=== PATIENT | male | born 1965 | race Caucasian/White ===

== ENCOUNTER 2018-05-18 11:49 | Emergency (ER) | payer MEDICAID ==
[~2018-05-18] VITALS: Ht 170.2 cm; Wt 75.0 kg
[2018-05-18 11:54] VITALS: Ht 170.2 cm; Wt 75.0 kg
[2018-05-18] MEDS ORDERED: DEXTROSE 50% 50 ML SYRINGE IV STA (12:03)
[2018-05-18] MEDS ORDERED: INSULIN (12:11)
--- NOTE | 2018-05-18 12:22 | ERD ---
ER Documentation Chief Complaint Chief Complaint hypoglycemia glucose 48 in intake HPI This is a 52-year-old man with a history of diabetes mellitus recently started on insulin therapy took his insulin this morning but only ate a small piece of toast and coffee for breakfast brought in by a friend for confusion and decreased mental status. He had no loss of consciousness, no seizure activity, no vomiting or diarrhea. Patient denies chest pain or shortness of breath. He has a remote history of alcoholism and possible cirrhosis and admits to having a long history of kidney disease not requiring hemodialysis and hypertension. Patient also has a history of diabetes mellitus but states he only recently began using insulin therapy. He denies blood per rectum or melena, no fevers or chills, no dysuria, no headache or blurry vision. ROS All systems reviewed and are negative except as per history of present illness. Medications Home Meds Reported Medications [Unkown Insulin] No Conflict Check 05/18/18 Allergies Allergies: Coded Allergies: No Known Allergy (Unverified , 05/18/18) PMhx/Soc Remote alcoholism, cirrhosis, diabetes mellitus, hypertension, chronic kidney disease not requiring hemodialysis FmHx Family History: diabetes Physical Exam Vitals Vital Signs Date Temp Pulse Resp B/P (MAP) Pulse Ox O2 O2 Flow FiO2 Time Delivery Rate 05/18/18 65 18 148/91 99 Room Air 13:36 (110) 05/18/18 76 18 118/80 98 Room Air 12:10 (93) 05/18/18 98.0 72 18 161/60 96 11:54 (93) Physical Exam GENERAL: Well-developed, well-nourished, appears confused, afebrile HEENT: Moist mucous membranes, pink conjunctiva, no cervical spine tenderness or step-off deformities, no goiter, no jaundice or icterus, extraocular movements intact without pain. NEURO: Alert and oriented 1, no focal deficits or facial asymmetry, able to answer questions and follow commands, pupils equal round reactive to light CARDIAC: Regular rate and rhythm, no murmurs rubs or gallops LUNGS: Clear bilaterally no wheezing crackles or stridor ABDOMEN: Soft nontender, no guarding, no rigidity, no rebound, no psoas sign no obturator sign. SKIN: Warm and dry to touch, no abrasions, contusions, or hematomas, no lacerations, no ecchymosis, no target lesions, and without ulcers EXTREMITIES: No clubbing cyanosis, 3+ pitting edema in the lower extremities bilaterally, calves are bilaterally symmetrical, no Homans sign, no popliteal cord sign. Distal pulses equal and bilateral PSYCH: Normal affect without agitation or irritability Result Diagram: 05/18/18 1205 05/18/18 1205 Results 24 hrs Laboratory Tests Test 05/18/18 11:53 05/18/18 12:01 05/18/18 12:04 05/18/18 12:05 Bedside Glucose 48 mg/dL 475 mg/dL 260 mg/dL 283 mg/dL White Blood Count 9.0 10^3/ul Red Blood Count 3.91 10^6/ul Hemoglobin 11.1 g/dl Hematocrit 33.4 % Mean Corpuscular 85.4 fl Volume Mean Corpuscular 28.4 pg Hemoglobin Mean Corpuscular 33.2 g/dl Hemoglobin Concent Red Cell 13.7 % Distribution Width Platelet Count 269 10^3/UL Mean Platelet 8.8 fl Volume Immature 0.300 % Granulocytes % Neutrophils % 67.1 % Lymphocytes % 23.8 % Monocytes % 7.3 % Eosinophils % 1.1 % Basophils % 0.4 % Nucleated Red Blood 0.0 /100WBC Cells % Immature 0.030 10^3/ul Granulocytes # Neutrophils # 6.0 10^3/ul Lymphocytes # 2.1 10^3/ul Monocytes # 0.7 10^3/ul Eosinophils # 0.1 10^3/ul Basophils # 0.0 10^3/ul Nucleated Red Blood 0.0 10^3/ul Cells # Sodium Level 134 mmol/L Potassium Level 4.2 mmol/L Chloride Level 106 mmol/L Carbon Dioxide 24 mmol/L Level Anion Gap 4 Blood Urea Nitrogen 35 mg/dl Creatinine 3.16 mg/dl Est Glomerular 21 mL/min Filtrat Rate mL/min Glucose Level 41 mg/dl Calcium Level 8.2 mg/dl Total Bilirubin 0.0 mg/dl Direct Bilirubin 0.00 mg/dl Indirect Bilirubin 0.0 mg/dl Aspartate Amino 83 IU/L Transf (AST/SGOT) Alanine 59 IU/L Aminotransferase (A LT/SGPT) Alkaline 175 IU/L Phosphatase Troponin I < 0.012 ng/ml Total Protein 6.6 g/dl Albumin 2.6 g/dl Globulin 4.00 g/dl Albumin/Globulin 0.65 Ratio Lipase 65 U/L Test 05/18/18 13:26 Bedside Glucose 67 mg/dL Current Medications Medications Dose Sig/Juan Ramon Start Time Status Last (Trade) Ordered Route PRN Stop Time Admin Dose Reason Admin Dextrose 50 ml ONCE STAT 05/18/18 DC 05/18/18 (D50w IV 12:03 12:07 Syringe) 05/18/18 12:06 Procedures/MDM IV line was established patient was placed on engine monitor rhythm strip revealed a sinus rhythm at about 80 bpm with upright P and T waves. Patient was afebrile Patient did appeared confused in the ER blood sugar was checked and was low, so I administered dextrose 25 g IV x1 with immediate improvement in mental status. At this time he is alert and oriented x3 and able to answer all questions and follow commands. He states he has had symptomatic hypoglycemia in the past. EKG performed, read by me revealed a normal sinus rhythm at 67 bpm, right axis, narrow QRS complex, no concerning ST elevations or depressions noted One AP view of the chest performed, read by me reveals no acute infiltrates, normal mediastinum, sharp costophrenic and cardiac borders, no air under the diaphragm. Otherwise unremarkable chest x-ray. CT scan of the abdomen and pelvis was performed,IMPRESSION: 1. Moderate all 4 quadrant abdominal ascites. No abscess or free air. 2. Cirrhosis. No focal hepatic lesions. 3. Multiple small nonobstructing left renal calcified calculi. No right urinary calcified calculi. No obstructive uropathy bilaterally. 4. Mild anasarca. 5. Chronic basilar interstitial lung disease and cylindrical bronchiectasis. Patient ate a full meal here and his blood sugar and mental status remained normal CBC was unremarkable, electrolytes revealed kidney disease with a creatinine of 3.2, bicarb was normal, liver function tests normal, troponin negative Patient's vital signs are normal and his mental status is at baseline, he ate a meal here and is asymptomatic. I recommend that he follow-up with his PMD for repeat imaging of the chest given today's x-ray findings read by radiology. He has no signs or symptoms of decompensated heart failure or any other active cardiopulmonary issues. Differential diagnoses considered, included but not limited to acute coronary syndrome, pulmonary embolism, aortic dissection, abdominal aortic aneurysm, sepsis, stroke, meningitis, encephalitis, pneumonia, appendicitis, cholecystitis, bowel obstruction, pyelonephritis, nephrolithiasis, cystitis, as well as metabolic, hematologic, and electrolyte abnormalities. As well as abscess, cellulitis, fractures, and dislocations. Patient feels much better at this time, and vital signs are normal, symptoms have improved. I did give strict instructions to return to the ED if symptoms continue or worsen, patient will otherwise follow-up with primary care physician. Patient understood instructions and agreed to plan. Disclaimer: Inadvertent spelling and grammatical errors are likely due to EHR/dictation software use and do not reflect on the overall quality of patient care. Also, please note that the electronic time recorded on this note does not necessarily reflect the actual time of the patient encounter. Departure Diagnosis: Primary Impression: Acute metabolic encephalopathy due to hypoglycemia Additional Impressions: Diabetes mellitus Diabetes mellitus type: type 2 Diabetes mellitus termination clerk insulin use: without senior living use Diabetes mellitus complication status: with unspecified complications Qualified Codes: E11.8 - Type 2 diabetes mellitus with unspecified complications Peripheral edema Chronic kidney disease Chronic kidney disease stage: stage 3 (moderate) Qualified Codes: N18.3 - Chronic kidney disease, stage 3 (moderate) Condition: CASSIUS Khan MD May 18, 2018 12:21
[2018-05-18 13:36] VITALS: BP 148/91; PULSE 65; RESP 18
== END 2018-05-18 14:14 | disposition home or self-care (01) ==
LOC: E/R 11:49
DX: E11.649 Type 2 diabetes mellitus with hypoglycemia without coma (principal); G93.41 Metabolic encephalopathy; R60.9 Edema, unspecified; N18.3 Chronic kidney disease, stage 3 (moderate); E11.22 Type 2 diabetes mellitus with diabetic chronic kidney disease; R10.9 Unspecified abdominal pain
CPT/HCPCS: 36415; 71045; 74176; 80053; 82962; 83690; 84484; 85025; 93005; 96374; Z7502